=== PATIENT | male | born 2000 | race Caucasian/White ===

== ENCOUNTER 2019-10-28 03:56 | Observation (INO) ==
--- OUTSIDE RECORDS SUMMARY | 2019-10-28 03:59 | External Medical Summary | Continuity of Care Document ---
:2000 Author Name Millicent Kenny, Provider Address Unavailable Unavailable , Care Team Providers Name Role Phone Jean Carlos Kenny, Carlos Orantes Unavailable [email or web address], UNKNOWN Unavailable Unavailable Problems Active medical history not documented Allergies and Adverse Reactions Allergy history not documented Medications Medications not documented Procedures Procedures not documented Immunizations Immunizations not documented Plan of Treatment Planned Observations Planned Goals not documented Results No Known Results Results not documented
[2019-10-28] MEDS ORDERED: NALOXONE HCL 0.4 MG/1 ML VIAL/CARP ONE ×2 (04:02→04:04)
[2019-10-28 04:40] LABS: Alanine Aminotransferase 32 U/L (12-78); Albumin Level 3.7 gm/dl (3.4-5.0); Aspartate Aminotransferase 21 U/L (15-37); BUN Creatinine Ratio 14.8 (10-20); Blood Urea Nitrogen 20 mg/dl (7-18); Calcium 8.8 mg/dl (8.5-10.1); Carbon Dioxide 26 mmol/L (21-32); Chloride 109 mmol/L (98-107); Est GFR (African American) 84.8; Est GFR (Non-African American) 73.2; Glucose 82 mg/dl (70-99); Potassium 3.9 mmol/L (3.5-5.1); Sodium 140 mmol/L (136-145)
[2019-10-28 04:43] LABS: Albumin Globulin Ratio 1.1 (0.9-2); Alkaline Phosphatase 72 U/L (45-117); Bilirubin,Total 0.3 mg/dl (0.2-1); Globulin 3.5 gm/dl (2.5-4.0); Total Protein 7.2 gm/dl (6.4-8.2)
[2019-10-28 04:50] LABS: Amphetamines+Metham, Urine Neg (Neg); Barbiturates, Urine Neg (Neg); Benzodiazepine, Urine Pos (Neg); Cocaine, Urine Neg (Neg); MDMA (Ecstacy), Urine Neg (Neg); Methadone, Urine Neg (Neg); Opiate, Urine Neg (Neg); Phencyclidine, Urine Neg (Neg)
--- NOTE | 2019-10-28 05:44 | History & Physical Report ---
Date of Service October 28, 2019 Assessment & Plan (1) Unresponsive episode: Obs PCU Did not respond to Narcan neither on seen or in the ED I see that 2 years ago he was worked up for seizures due to syncope. EEG ordered Seizure precautions ordered. Neuro consult due this history. 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 I ordered CBC. LR at 150ml/hr. (3) Alcohol intoxication: ETOH level 164. History of Present Illness 19 y/o male was found unresponsive in bathroom by law enforcement. Reports that he had shallow breathing and was hypoxic in the 80's. Apparently he was able to be aroused and walked to stretcher, but then became unresponsive again and had pinpoint pupils. Narcan was given with no response. In the ED, the patient was given IV Narcan again with no response. The patient is currently sleeping with normal vital signs. POX 95% on RA. Nursing reported that he did awaken on his own briefly and said he did not know what had happened. Primary Care Provider: NO PCP Allergies Allergy/AdvReac Type Severity Reaction Status Date / Time No Known Allergies Allergy Unverified 11/29/18 04:57 Home Medications Home Medications Medication Instructions Recorded Confirmed Type No Known Home Medications 12/30/18 12/30/18 History Unobtainable 10/28/19 10/28/19 History Past Med/Surg History Medical History Seizure Family History Other No significant family history Social History Preferred Language: Vietnamese marital status: Single current occupational status: student Feels Safe at Home: Yes Smoking Status: Unknown if ever smoked Hx Substance Use: Yes substance use type: marijuana Review of Systems Review of Systems: Unobtainable due to reduced consciousness Physical Exam Physical Exam: General- adult male, sleeping does not awaken to loud verbal, Nurse reports that patient does awaken briefly, He is controlling his airway. Head- atraumatic Eyes- PERRL, EOMI, anicteric ENT- oropharynx clear Neck- supple, no JVD, no adenopathy, no thyromegaly. Lungs- CTA b/l, No R/R/W. Heart- regular rhythm; no murmur, no gallop, no rub appreciated Abdomen- normal bowel sounds, soft. Extremities- no pretibial edema, peripheral pulses intact Neuro- Sleeping, deferred at this time. Skin- warm & dry Results & Data Vital Signs (Past 12 Hours) Vital Signs Temp Pulse Resp BP Pulse Ox 10/28/19 05:00 68 17 98 10/28/19 04:55 77 20 114/66 10/28/19 04:54 103 H 19 96 10/28/19 04:45 100 10/28/19 04:41 91 H 99 10/28/19 04:40 85 133/76 97 10/28/19 04:38 110 H 96 10/28/19 04:20 80 17 100 10/28/19 04:10 67 100 10/28/19 04:05 67 100 10/28/19 03:56 36.6 C 67 17 123/73 98 Laboratory Results Laboratory Results Sodium 140 mmol/L (136-145) 10/28/19 04:11 Potassium 3.9 mmol/L (3.5-5.1) 10/28/19 04:11 Chloride 109 mmol/L (98-107) H 10/28/19 04:11 Carbon Dioxide 26 mmol/L (21-32) 10/28/19 04:11 Anion Gap 5.0 (3-11) 10/28/19 04:11 BUN 20 mg/dl (7-18) H 10/28/19 04:11 Creatinine 1.37 mg/dl (0.6-1.4) 10/28/19 04:11 Est Cr Clr Drug Dosing Not Reportable 10/28/19 04:11 Est GFR ( Amer) 84.8 10/28/19 04:11 Est GFR (Non-Af Amer) 73.2 10/28/19 04:11 BUN/Creatinine Ratio 14.8 (10-20) 10/28/19 04:11 Glucose 82 mg/dl (70-99) 10/28/19 04:11 Calcium 8.8 mg/dl (8.5-10.1) 10/28/19 04:11 Total Bilirubin 0.3 mg/dl (0.2-1) 10/28/19 04:11 AST 21 U/L (15-37) 10/28/19 04:11 ALT 32 U/L (12-78) 10/28/19 04:11 Alkaline Phosphatase 72 U/L (45-117) 10/28/19 04:11 Total Protein 7.2 gm/dl (6.4-8.2) 10/28/19 04:11 Albumin 3.7 gm/dl (3.4-5.0) 10/28/19 04:11 Globulin 3.5 gm/dl (2.5-4.0) 10/28/19 04:11 Albumin/Globulin Ratio 1.1 (0.9-2) 10/28/19 04:11 Urine Opiates Screen Neg (Neg) 10/28/19 04:17 Ur Methadone, Qual Neg (Neg) 10/28/19 04:17 Urine Barbiturates Neg (Neg) 10/28/19 04:17 Ur Phencyclidine (PCP) Neg (Neg) 10/28/19 04:17 U Amphetamin/Meth Scrn Neg (Neg) 10/28/19 04:17 MDMA (Ecstasy) Screen Neg (Neg) 10/28/19 04:17 U Benzodiazepines Scrn Pos (Neg) H 10/28/19 04:17 Ur Cocaine Metabolite Neg (Neg) 10/28/19 04:17 U Marijuana (THC) Screen Pos (Neg) H 10/28/19 04:17 Ethyl Alcohol mg/dL 164.0 mg/dl (0-3) H 10/28/19 04:11 Code Status & VTE Plan VTE Prophylaxis Plan VTE Prophylaxis will be ordered: Yes PG Care Time/CCT Total # of Minutes Spent Total Time Spent: 45 Total Time Spent with Patient: Total time spent is greater than 50% in coordination of care (as documented) at patient's floor/unit and/or counseling patient: (1) Altered mental status Altered mental status type: unspecified Qualified Code(s): R41.82 - Altered mental status, unspecified (2) Alcohol intoxication Complication of substance-induced condition: uncomplicated Qualified Code(s): F10.920 - Alcohol use, unspecified with intoxication, uncomplicated
[2019-10-28 05:46] LABS: Basophils # (auto) 0.01 K/uL (0-0.2); Basophils % (auto) 0.3 %; Eosinophils # (auto) 0.06 K/uL (0-0.5); Eosinophils % (auto) 1.6 %; Hematocrit (blood only) 39.6 % (42-52); Hemoglobin 13.5 g/dL (14.0-18.0); Lymphocytes # (auto) 1.37 K/uL (1.2-3.4); Lymphocytes % (auto) 35.8 %; Mean Corpuscular Hemoglobin 29.7 pg (25-34); Mean Corpuscular Hgb Conc 34.1 g/dL (32-36); Mean Corpuscular Volume 87.2 fL (80-100); Mean Platelet Volume 11.4 fL (7.4-10.4); Monocytes # (auto) 0.26 K/uL (0.11-0.59); Monocytes % (auto) 6.8 %; Neutrophils # (auto) 2.13 K/uL (1.4-6.5); Neutrophils % (auto) 55.5 %; Platelet Count 158 K/uL (130-400); RDW Coefficient of Variation 13.6 % (11.5-14.5); Red Blood Count 4.54 M/uL (4.7-6.1); White Blood Count 3.83 K/uL (4.8-10.8)
--- NOTE | 2019-10-28 05:47 | Emergency Department Note ---
Entered by Mason Gilman acting as a scribe for History of Present Illness General Chief complaint: Unresponsive Stated complaint: UNRESPONSIVE Time Seen by Provider: 10/28/19 04:09 Source: EMS Limitations: clinical acuity (unresponsiveness) History of Present Illness Onset (ago): day(s) (this morning) Location: head Pain Consistency: + constant Quality: + other (unresponsiveness) Associated symptoms: + other (Positive for pinpoint pupils, slow respirations, and a low oxygen saturation in the 80s.) Treatments prior to arrival: other (Narcan) The patient is a 19 year old male who presents to the emergency department with constant unresponsiveness beginning this morning. Per EMS, the patient was found unresponsive in the bathroom of Reginal[facility] Esquivel. He states that the patient was found with a little red bag containing some powder residue beneath him. He notes that the patient was initially able to walk with assistance, but he reports that the patient then went unresponsive. He states that the patients pupils were pinpoint and he notes that the patient had slow respirations at that time. He reports that the patient also had a low oxygen saturation in the 80s. He states that the patient received 2mg intranasal Narcan by EMS. HPI limited secondary to unresponsiveness. Home Medications Home Medications Medication Instructions Recorded Confirmed Type No Known Home Medications 12/30/18 12/30/18 History Unobtainable 10/28/19 10/28/19 History Allergies Allergy/AdvReac Type Severity Reaction Status Date / Time No Known Allergies Allergy Unverified 11/29/18 04:57 Past Med/Surg History Medical History Seizure Family History Other No significant family history Social History Preferred Language: Maltese marital status: Single current occupational status: student Feels Safe at Home: Yes Smoking Status: Unknown if ever smoked Hx Substance Use: Yes substance use type: marijuana Review of Systems ROS limited secondary to unresponsiveness. Physical Exam Vital Signs Vital Signs - 24 hr 10/28/19 03:56 10/28/19 04:05 10/28/19 04:10 Temperature 36.6 C Temperature Source Oral Pulse Rate 67 67 67 Pulse Rate from SpO2 Sensor 67 67 Respiratory Rate 17 Blood Pressure 123/73 Blood Pressure Mean 89 Pulse Oximetry 98 100 100 Oxygen Delivery Method Nasal Cannula Nasal Cannula Nasal Cannula Oxygen Flow Rate 5 5 5 Sepsis Recent Fever Within 48 Hours No Sepsis New/Unexplained Change in Mental Status No Sepsis Action Taken by Nursing No Action Required Oxygen Flow Rate - Titration Pulse Oximetry Post Tiitration 10/28/19 04:20 10/28/19 04:38 10/28/19 04:40 Temperature Temperature Source Pulse Rate 80 110 H 85 Pulse Rate from SpO2 Sensor 80 85 86 Respiratory Rate 17 Blood Pressure 133/76 Blood Pressure Mean 90 Pulse Oximetry 100 96 97 Oxygen Delivery Method Nasal Cannula Room Air Room Air Oxygen Flow Rate 5 Sepsis Recent Fever Within 48 Hours Sepsis New/Unexplained Change in Mental Status Sepsis Action Taken by Nursing Oxygen Flow Rate - Titration Pulse Oximetry Post Tiitration 10/28/19 04:41 10/28/19 04:45 10/28/19 04:54 Temperature Temperature Source Pulse Rate 91 H 103 H Pulse Rate from SpO2 Sensor 90 Respiratory Rate 19 Blood Pressure Blood Pressure Mean Pulse Oximetry 99 100 96 Oxygen Delivery Method Room Air Oxygen Flow Rate 5 Sepsis Recent Fever Within 48 Hours Sepsis New/Unexplained Change in Mental Status Sepsis Action Taken by Nursing Oxygen Flow Rate - Titration 0 Pulse Oximetry Post Tiitration 96 10/28/19 04:55 10/28/19 05:00 Temperature Temperature Source Pulse Rate 77 68 Pulse Rate from SpO2 Sensor Respiratory Rate 20 17 Blood Pressure 114/66 Blood Pressure Mean 87 Pulse Oximetry 98 Oxygen Delivery Method Room Air Oxygen Flow Rate Sepsis Recent Fever Within 48 Hours Sepsis New/Unexplained Change in Mental Status Sepsis Action Taken by Nursing Oxygen Flow Rate - Titration Pulse Oximetry Post Tiitration HEENT: Head - normocephalic and atraumatic. Pupils pinpoint. Extraocular eye muscles are intact, and sclera are anicteric. Nose - moist nasal mucosa without discharge. Mouth - moist buccal mucosa. Oropharynx is nonerythematous and there is no tonsillar exudate or edema noted. Neck: Supple; no cervical lymphadenopathy or nuchal rigidity appreciated Heart: Regular rate and rhythm. There is a normal S1 and S2 with no murmurs, clicks, or gallops appreciated. Lungs: Clear to auscultation bilaterally with no wheezes, rales, or rhonchi. Abdomen: Soft, completely nontender, nondistended, with good bowel sounds. There are no palpable pulsatile masses or hepatosplenomegaly. There is no guarding, rigidity, or rebound noted. Extremities: No evidence of cyanosis, clubbing, or edema. There are easily palpable peripheral pulses. Abrasions to right knee. Skin: warm and dry with good turgor and no rashes. Course Course 0358: The patient was evaluated in room B1. A complete history and physical exam was performed. Nursing notes and previous electronic medical records were reviewed. IV lock was established and labs were drawn as above. An order was placed for continuous cardiac monitoring. The patient was in a normal sinus rhythm at 72. He does have snoring respirations at times. 0404: Naloxone 2mg IV. The patient did not seem to arouse with this medication. 0442: I reevaluated the patient. He is awake and slowly answering questions. 0505: Nursing is putting seizure pads on the bed. The patient is sleeping. 0508: Upon reevaluation, the patient is stable. I discussed the findings and the treatment plan with the patient. He expresses agreement and understanding. I spoke with Dr. Siegel of the [facility] Hospitalist Service. He will be evaluated for further management. Consultations Consultation #1: I reviewed the patient's case with Dr. Siegel - Hospitalist, [facility]. He will evaluate the patient for further management. Time: 05:08 Administered Medications Discontinued Medications Naloxone HCl (Narcan) Confirm Administered Dose 1.2 mg .ROUTE .STK-MED ONE Stop: 10/28/19 04:03 Last Admin: 10/28/19 04:04 Dose: 0.4 mg Documented by: [id number] Naloxone HCl (Narcan) Confirm Administered Dose 1.6 mg .ROUTE .STK-MED ONE Stop: 10/28/19 04:05 Last Admin: 10/28/19 04:04 Dose: 1.6 mg Documented by: [id number] Medical Decision Making Differential Diagnosis Differential diagnoses include: alcohol overdose, drug intoxication, hypoglycemia, seizure, and closed head injury. Medical Records Attestation: I reviewed the patient's medical records. Home Medications Current Medication List: was personally reviewed by me Laboratory Data Attestation: I reviewed the patient's lab results. Result diagrams: 10/28/19 04:11 Lab Results 01/17/20 01/17/20 01/17/20 Range/Units 04:11 04:11 04:17 Sodium 140 (136-145) mmol/L Potassium 3.9 (3.5-5.1) mmol/L Chloride 109 H (98-107) mmol/L Carbon Dioxide 26 (21-32) mmol/L Anion Gap 5.0 (3-11) BUN 20 H (7-18) mg/dl Creatinine 1.37 (0.6-1.4) mg/dl Est Cr Clr Drug Dosing Not Reportable Est GFR ( Amer) 84.8 Est GFR (Non-Af Amer) 73.2 BUN/Creatinine Ratio 14.8 (10-20) Glucose 82 (70-99) mg/dl Calcium 8.8 (8.5-10.1) mg/dl Total Bilirubin 0.3 (0.2-1) mg/dl AST 21 (15-37) U/L ALT 32 (12-78) U/L Alkaline Phosphatase 72 (45-117) U/L Total Protein 7.2 (6.4-8.2) gm/dl Albumin 3.7 (3.4-5.0) gm/dl Globulin 3.5 (2.5-4.0) gm/dl Albumin/Globulin Ratio 1.1 (0.9-2) Urine Opiates Screen Neg (Neg) Ur Methadone, Qual Neg (Neg) Urine Barbiturates Neg (Neg) Ur Phencyclidine (PCP) Neg (Neg) U Amphetamin/Meth Scrn Neg (Neg) MDMA (Ecstasy) Screen Neg (Neg) U Benzodiazepines Scrn Pos H (Neg) Ur Cocaine Metabolite Neg (Neg) U Marijuana (THC) Screen Pos H (Neg) Ethyl Alcohol mg/dL 164.0 H (0-3) mg/dl Imaging Data Radiologist's Impression: Radiology results as stated below per my review and the radiologist's interpretation: CT HEAD: No acute intracranial hemorrhage, extra-axial fluid collection, edema, mass effect, or acute cortical infarct. No fracture. The paranasal sinuses and mastoid air cells are clear. Radiologist: Beau Cabrales MD. ECG Data Attestation: I personally reviewed and interpreted this ECG as follows: Indication: + altered mental status (unresponsiveness) Rate (beats per minute): 67 Rhythm: + normal sinus ECG ST segments: no ST depression and no ST elevation ECG Findings: no PACs and no PVCs Blood Pressure Blood Pressure Findings: Normal blood pressure Blood Pressure Disposition: did not require urgent referral MDM Narrative The patient is a 19 year old male who presents to the emergency department with constant unresponsiveness beginning this morning. The patient smells of alcohol upon presentation. He did have pinpoint pupils that were nonreactive and did not change with administration of IV Narcan. The patient remained on supplemental oxygen. Alcohol level was 160. Urine tox s creen was positive for benzodiazepine and marijuana. In reviewing the patient's medical records, it seems that he has been seen in this emergency department on 2 previous occasions for seizure-like activity. In reviewing those notes, it seems that he has had a neurological work-up including EEG which was negative. The patient did wake up here in the emergency department appeared to be postictal. I am concerned that the patient did suffer a seizure and is also intoxicated with alcohol. I discussed the case with the [facility] Hospitalist and they will evaluate for further management. Impression & Plan Altered mental status, Alcohol intoxication Discharge Plan Visit Data Chief Complaint: Unresponsive Stated Complaint: UNRESPONSIVE ED Provider: Marleny Montaño Discharge Problem: Altered mental status, Alcohol intoxication Patient Disposition: Being Evaluated by Hospitalist Forms Stand Alone Forms: My [facility] Prescriptions Prescriptions: No Action No Known Home Medications RF: 0 Unobtainable RF: 0 Referrals Referrals: PCP,NO [Primary Care Provider] - Discharge Problem: Altered mental status Qualifiers: Altered mental status type: unspecified Qualified Code(s): R41.82 - Altered mental status, unspecified Alcohol intoxication Qualifiers: Complication of substance-induced condition: uncomplicated Qualified Code(s): F10.920 - Alcohol use, unspecified with intoxication, uncomplicated The scribe's documentation has been prepared under my direction and personally reviewed by me in its entirety. I confirm that the note above accurately reflects all work, treatment, procedures, and medical decision making performed by me.
[2019-10-28] MEDS ORDERED: LACTATED RINGER'S 1,000 ML IV SCH (06:00)
[2019-10-28] MEDS ORDERED: ACETAMINOPHEN 325 MG TAB PO PRN (06:05)
[2019-10-28] MEDS ORDERED: ONDANSETRON INJ 2 MG/ML 2 ML VIAL IV PRN (06:05)
--- NOTE | 2019-10-28 07:24 | CT Scan Report ---
CT SCAN OF THE BRAIN WITHOUT IV CONTRAST CLINICAL HISTORY: Unresponsive. COMPARISON STUDY: MRI of the brain dated 07/26/2018. TECHNIQUE: Unenhanced axial CT scan of the brain is performed from the vertex to the skull base. A d ose lowering technique was utilized adhering to the principles of ALARA. CT DOSE: 614.27 mGy.cm FINDINGS: Brain parenchyma: The brain parenchyma is normal in appearance. There is no hemorrhage, mass effect, or evidence of acute territorial ischemia by CT criteria. Faria-white matter differentiation is preser miguel angel. No extra-axial fluid collection is seen. Ventricles, sulci, cisterns: Normal in configuration. Intracranial vasculature: The visualized intracranial vasculature at the skull base is normal in appe arance. Calvarium: Unremarkable. Sinuses and mastoids: The visualized paranasal sinuses are clear. The mastoid air cells are well pneu matized. Orbits: The bony orbits are grossly intact. IMPRESSION: No acute intracranial abnormality. ACT 112: Negative or not required by law. Electronically signed by: Chico Moreno M.D. 10/28/2019 7:22 AM
--- NOTE | 2019-10-28 11:49 | Electrocardiogram Report ---
Test Reason : Blood Pressure : / mmHG Vent. Rate : 067 BPM Atrial Rate : 067 BPM P-R Int : 192 ms QRS Dur : 108 ms QT Int : 408 ms P-R-T Axes : 056 063 050 degrees QTc Int : 431 ms Normal sinus rhythm Incomplete right bundle branch block Diffuse Minor ST elevation, most consistent with repolarization variant Abnormal ECG When compared with ECG of 30-DEC-2018 20:19, Minor ST elevation more apparent (likely rate related phenomenon) HR has decreased BY 46 BPM Confirmed by Arash Marrufo ([id number]) on 10/28/2019 11:49:21 AM Referred By: REFERRED SELF Confirmed By:Arash Marrufo
--- NOTE | 2019-10-28 12:18 | Electrocardiogram Report ---
Test Reason : Blood Pressure : / mmHG Vent. Rate : 082 BPM Atrial Rate : 082 BPM P-R Int : 156 ms QRS Dur : 096 ms QT Int : 378 ms P-R-T Axes : 056 035 016 degrees QTc Int : 441 ms Normal sinus rhythm Normal ECG When compared with ECG of 28-OCT-2019 04:02, Diffuse Minor ST elevation no longer present Confirmed by Arash Marrufo ([id number]) on 10/28/2019 12:18:17 PM Referred By: REFERRED SELF Confirmed By:Arash Marrufo
--- NOTE | 2019-10-28 13:56 | Electroencephalogram ---
EEG Procedure Note Date of Service October 28, 2019 Start / End Times Start Time: 704 End Time: 734 Referring Physician Gabino Siegel History Probable ethanol overdose with other substances, unresponsive state, history of syn Home Medication List Home Medications Medication Instructions Recorded Confirmed Type No Known Home Medications 12/30/18 12/30/18 History Unobtainable 10/28/19 10/28/19 History Inpatient Medication List Lactated Ringer's (Lr) 1,000 mls @ 150 mls/hr IV .[id number] [facility] Stop: 11/27/19 05:59 Last Admin: 10/28/19 06:06 Dose: 150 mls/hr Documented by: [id number] Discontinued Medications Naloxone HCl (Narcan) Confirm Administered Dose 1.2 mg .ROUTE .[employer] ONE Stop: 10/28/19 04:03 Last Admin: 10/28/19 04:04 Dose: 0.4 mg Documented by: [id number] Naloxone HCl (Narcan) Confirm Administered Dose 1.6 mg .ROUTE .STK-[employer] ONE Stop: 10/28/19 04:05 Last Admin: 10/28/19 04:04 Dose: 1.6 mg Documented by: [id number] Description This is a 21 electrode EEG with a single channel dedicated to limited EKG. The electrodes were placed in accordance with the International 10-20 system. This EEG was done as a bedside recording in the intensive care unit. Simultaneous video analysis was performed unfortunately the actual image was not downloaded with sufficient pulmonary to be viewed. Photic stimulation was performed Drowsiness and light sleep were not clearly recorded Under the conditions there is evidence for normal-appearing background alpha rhythm of about 9 to 10 Hz of maximal frequency of 30 V maximal amplitude. This is maximum posterior head regions bilaterally symmetrical. Polymorphic relatively low amplitude frequency theta activity seen over the central regions in a symmetrical fashion. Beta activity seen bifrontally At no time during the waking tracing is there evidence for potentially epileptogenic activity. Photic stimulation provokes a moderate driving response without a photoparoxysmal Tracing is hampered by periodic muscle movement artifact but otherwise is relatively free of significant impediments to interpretation Interpretation This is a normal EEG during wakefulness without evidence for a focal generalized encephalopathy without evidence for potentially epileptogenic patterns Clinical Correlation Mat This EEG is normal during wakefulness without a focal or generalized encephalopathy and without evidence for potentially epileptogenic patterns. Normal EEG unfortunately does not exclude the diagnosis of seizure disorder Reza Saleh MD
--- NOTE | 2019-10-28 14:49 | Discharge Summary ---
Date of Service October 28, 2019 Admission HPI Per Admitting Provider 19 y/o male was found unresponsive in bathroom by law enforcement. Reports that he had shallow breathing and was hypoxic in the 80's. Apparently he was able to be aroused and walked to stretcher, but then became unresponsive again and had pinpoint pupils. Narcan was given with no response. In the ED, the patient was given IV Narcan again with no response. The patient is currently sleeping with normal vital signs. POX 95% on RA. Nursing reported that he did awaken on his own briefly and said he did not know what had happened. Primary Care Provider: NO PCP Admission Exam (Per Admitting) Constitutional General- adult male, sleeping does not awaken to loud verbal, Nurse reports that patient does awaken briefly, He is controlling his airway. Head- atraumatic Eyes- PERRL, EOMI, anicteric ENT- oropharynx clear Neck- supple, no JVD, no adenopathy, no thyromegaly. Lungs- CTA b/l, No R/R/W. Heart- regular rhythm; no murmur, no gallop, no rub appreciated Abdomen- normal bowel sounds, soft. Extremities- no pretibial edema, peripheral pulses intact Neuro- Sleeping, deferred at this time. Skin- warm & dry Discharge Data Consultations [place] [phone] CT Scan Report Patient: BRIANA ESPAÑAAdmit Date: 10/28/19 MR#: [id number]: [address] Acct ID:[id number]: Date: 2000[facility] Zip: [place] [address] Age: 19Location: 1E Sex: M Room/Bed: [facility] Att Phy: Gabino Siegel, DODiagnosis: UNRESPONSIVE EPISODE, ALTERED MENTAL STATUS Nini Phy: PCP,NOService Date: 10/28/19 Fam Phy:Interpreting Phy: Chico Moreno MD Admit Phy: Gabino Siegel, DO Ordering Phy: Marleny Montaño D.O. cc: ~ CT SCAN OF THE BRAIN WITHOUT IV CONTRAST CLINICAL HISTORY: Unresponsive. COMPARISON STUDY: MRI of the brain dated 07/26/2018. TECHNIQUE: Unenhanced axial CT scan of the brain is performed from the vertex to the skull base. A dose lowering technique was utilized adhering to the principles of ALARA. CT DOSE: 614.27 mGy.cm FINDINGS: Brain parenchyma: The brain parenchyma is normal in appearance. There is no hemorrhage, mass effect, or evidence of acute territorial ischemia by CT criteria. Faria-white matter differentiation is preserved. No extra-axial fluid collection is seen. Ventricles, sulci, cisterns: Normal in configuration. Intracranial vasculature: The visualized intracranial vasculature at the skull base is normal in appearance. Calvarium: Unremarkable. Sinuses and mastoids: The visualized paranasal sinuses are clear. The mastoid air cells are well pneumatized. Orbits: The bony orbits are grossly intact. IMPRESSION: No acute intracranial abnormality. ACT 112: Negative or not required by law. Electronically signed by: Chico Moreno M.D. 10/28/2019 7:22 AM Dictated: 10/28/19 0700 10/28/19 05:11 ED Decision to Admit Stat 10/28/19 13:57 Consult [employer] [place] [address] Electroencephalogram Signed Patient: BRIANA ESPAÑAAdmit Date: 10/28/19 MR#: [id number] Phy: Debbie Tanner MD Acct ID:[id number] Phy: PCP,NO Date: 2000Fa Phy: Age: 19Location: 1E Sex: M Room/Bed: [facility] cc: ~ *NOTICE TO RECEIVING DEMOCRAT/AGENCY This information is strictly Confidential and protected under [place] law. [place] law prohibits you from making any further disclosure of this information unless further disclosure is expressly permitted by the written consent of the person to whom it pertains or is authorized by law. A general authorization for the release of medical or other information is not sufficient for this purpose. Hospital accepts no responsibility if the information is made available to any other person, INCLUDING THE PATIENT. EEG Procedure Note Date of Service October 28, 2019 Start / End Times Start Time: 704 End Time: 734 Referring Physician Gabino Siegel History Probable ethanol overdose with other substances, unresponsive state, history of syn Home Medication List Home Medications Medication Instructions Recorded Confirmed Type No Known Home Medications 12/30/18 12/30/18 History Unobtainable 10/28/19 10/28/19 History Inpatient Medication List Lactated Ringer's (Lr) 1,000 mls @ 150 mls/hr IV .Q6H40M [facility]OL[facility]O Stop: 11/27/19 05:59 Last Admin: 10/28/19 06:06 Dose: 150 mls/hr Documented by: [id number] Discontinued Medications Naloxone HCl (Narcan) Confirm Administered Dose 1.2 mg .ROUTE .STK-MED ONE Stop: 10/28/19 04:03 Last Admin: 10/28/19 04:04 Dose: 0.4 mg Documented by: [id number] Naloxone HCl (Narcan) Confirm Administered Dose 1.6 mg .ROUTE .STK-MED ONE Stop: 10/28/19 04:05 Last Admin: 10/28/19 04:04 Dose: 1.6 mg Documented by: [id number] Description This is a 21 electrode EEG with a single channel dedicated to limited EKG. The e lectrodes were placed in accordance with the International 10-20 system. This EEG was done as a bedside recording in the intensive care unit. Simultaneous video analysis was performed unfortunately the actual image was not downloaded with sufficient pulmonary to be viewed. Photic stimulation was performed Drowsiness and light sleep were not clearly recorded Under the conditions there is evidence for normal-appearing background alpha rhythm of about 9 to 10 Hz of maximal frequency of 30 V maximal amplitude. This is maximum posterior head regions bilaterally symmetrical. Polymorphic relatively low amplitude frequency theta activity seen over the central regions in a symmetrical fashion. Beta activity seen bifrontally At no time during the waking tracing is there evidence for potentially epileptogenic activity. Photic stimulation provokes a moderate driving response without a photoparoxysmal Tracing is hampered by periodic muscle movement artifact but otherwise is relatively free of significant impediments to interpretation Interpretation This is a normal EEG during wakefulness without evidence for a focal generalized encephalopathy without evidence for potentially epileptogenic patterns Clinical Correlation Mat This EEG is normal during wakefulness without a focal or generalized encephalopathy and without evidence for potentially epileptogenic patterns. Normal EEG unfortunately does not exclude the diagnosis of seizure disorder Reza Saleh MD Signed By:<Electronically signed by Reza Saleh MD>10/28/19 7761 Created: 10/28/19 1348 Hospital Course (1) Altered mental status: 19 yo male presents to ED after being found unresponsive by law enforcement Alcohol intoxication - Etoh level of 164 and urine positive for benzo's and marijuana - Received Narcan in the ED and transferred to the ICU. Improved throughout the morning. - Case discussed with neurology considering the patient PMH of seizure-like episodes. Previous EEG were negative. - Obtained EEG in the morning (see results above). Normal per neuro read. - Patient will need follow up with [facility] - Discussed alcohol cessation and alcohol counseling with the patient (2) Alcohol intoxication: (3) Unresponsive episode:
--- NOTE | 2019-10-28 14:51 | Discharge Summary ---
Date of Service October 28, 2019 Admission HPI Per Admitting Provider 19 y/o male was found unresponsive in bathroom by law enforcement. Reports that he had shallow breathing and was hypoxic in the 80's. Apparently he was able to be aroused and walked to stretcher, but then became unresponsive again and had pinpoint pupils. Narcan was given with no response. In the ED, the patient was given IV Narcan again with no response. The patient is currently sleeping with normal vital signs. POX 95% on RA. Nursing reported that he did awaken on his own briefly and said he did not know what had happened. Primary Care Provider: NO PCP Admission Exam Per Admitting Provider Constitutional General- adult male, sleeping does not awaken to loud verbal, Nurse reports that patient does awaken briefly, He is controlling his airway. Head- atraumatic Eyes- PERRL, EOMI, anicteric ENT- oropharynx clear Neck- supple, no JVD, no adenopathy, no thyromegaly. Lungs- CTA b/l, No R/R/W. Heart- regular rhythm; no murmur, no gallop, no rub appreciated Abdomen- normal bowel sounds, soft. Extremities- no pretibial edema, peripheral pulses intact Neuro- Sleeping, deferred at this time. Skin- warm & dry Principal Diagnosis ETOH intoxication Discharge Exam Constitutional WD/WN, vitals as above Eyes PERRL, conjunctivae normal, anicteric sclerae ENMT external ear and nose normal, oropharynx normal Neck trachea midline, no thyromegaly Respiratory normal respiratory effort, lungs clear to auscultation Cardiovascular RRR, no murmur, no edema Gastrointestinal (Abdomen) normal bowel sounds, soft, nontender, no hepatosplenomegaly Musculoskeletal no cyanosis or clubbing, extremities motor strength 5/5 Skin no rashes, warm and dry Neurologic PERRL, EOMI, accommodation nl, no face palsy, no dysarthria Psychiatric A+Ox3, euthymic affect Discharge Data Allergies Allergy/AdvReac Type Severity Reaction Status Date / Time No Known Allergies Allergy Unverified 11/29/18 04:57 Consultations 10/28/19 05:11 ED Decision to Admit Stat 10/28/19 13:57 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 [place] Att Phy: Gabino Siegel, DODiagnosis: UNRESPONSIVE EPISODE, ALTERED MENTAL STATUS Nini Phy: PCP,NOService Date: 10/28/19 Fam Phy:Interpreting Phy: Chico Moreno MD Admit Phy: Gabino Siegel, DO Ordering Phy: Marleny Montaño D.O. cc: ~ CT SCAN OF THE BRAIN WITHOUT IV CONTRAST CLINICAL HISTORY: Unresponsive. COMPARISON STUDY: MRI of the brain dated 07/26/2018. TECHNIQUE: Unenhanced axial CT scan of the brain is performed from the vertex to the skull base. A dose lowering technique was utilized adhering to the principles of ALARA. CT DOSE: 614.27 mGy.cm FINDINGS: Brain parenchyma: The brain parenchyma is normal in appearance. There is no hemorrhage, mass effect, or evidence of acute territorial ischemia by CT criteria. Faria-white matter differentiation is preserved. No extra-axial fluid collection is seen. Ventricles, sulci, cisterns: Normal in configuration. Intracranial vasculature: The visualized intracranial vasculature at the skull base is normal in appearance. Calvarium: Unremarkable. Sinuses and mastoids: The visualized paranasal sinuses are clear. The mastoid air cells are well pneumatized. Orbits: The bony orbits are grossly intact. IMPRESSION: No acute intracranial abnormality. ACT 112: Negative or not required by law. Electronically signed by: Chico Moreno M.D. 10/28/2019 7:22 AM Dictated: 10/28/19 0700 10/28/19 05:11 ED Decision to Admit Stat 10/28/19 13:57 Consult [employer] [place] [address] Electroencephalogram Signed Patient: BRIANA ESPAÑAAdmit Date: 10/28/19 MR#: [id number] Phy: Debbie Tanner MD Acct ID:[id number] Phy: DAVID,NO Date: 2000Fam Phy: Age: 19Location: 1E Sex: M Room/Bed: [facility] [place] cc: ~ *NOTICE TO RECEIVING CONSTITUTION PARTY/AGENCY This information is strictly Confidential and protected under [place] law. [place] law prohibits you from making any further disclosure of this information unless further disclosure is expressly permitted by the written consent of the person to whom it pertains or is authorized by law. A general authorization for the release of medical or other information is not sufficient for this purpose. Hospital accepts no responsibility if the information is made available to any other person, INCLUDING THE PATIENT. EEG Procedure Note Date of Service October 28, 2019 Start / End Times Start Time: 704 End Time: 734 Referring Physician Gabino Siegel History Probable ethanol overdose with other substances, unresponsive state, history of syn Home Medication List Home Medications Medication Instructions Recorded Confirmed Type No Known Home Medications 12/30/18 12/30/18 History Unobtainable 10/28/19 10/28/19 History Inpatient Medication List Lactated Ringer's (Lr) 1,000 mls @ 150 mls/hr IV .Q6H40M [facility] Stop: 11/27/19 05:59 Last Admin: 10/28/19 06:06 Dose: 150 mls/hr Documented by: [id number] Discontinued Medications Naloxone HCl (Narcan) Confirm Administered Dose 1.2 mg .ROUTE .STK-MED ONE Stop: 10/28/19 04:03 Last Admin: 10/28/19 04:04 Dose: 0.4 mg Documented by: [id number] Naloxone HCl (Narcan) Confirm Administered Dose 1.6 mg .ROUTE .STK-MED ONE Stop: 10/28/19 04:05 Last Admin: 10/28/19 04:04 Dose: 1.6 mg Documented by: [id number] Description This is a 21 electrode EEG with a single channel dedicated to limited EKG. The electrodes were placed in accordance with the International 10-20 system. This EEG was done as a bedside recording in the intensive care unit. Simultaneous video analysis was performed unfortunately the actual image was not downloaded with sufficient pulmonary to be viewed. Photic stimulation was performed Drowsiness and light sleep were not clearly recorded Under the conditions there is evidence for normal-appearing background alpha rhythm of about 9 to 10 Hz of maximal frequency of 30 V maximal amplitude. This is maximum posterior head regions bilaterally symmetrical. Polymorphic relatively low amplitude frequency theta activity seen over the central regions in a symmetrical fashion. Beta activity seen bifrontally At no time during the waking tracing is there evidence for potentially epileptogenic activity. Photic stimulation provokes a moderate driving response without a photoparoxysmal Tracing is hampered by periodic muscle movement artifact but otherwise is relatively free of significant impediments to interpretation Interpretation This is a normal EEG during wakefulness without evidence for a focal generalized encephalopathy without evidence for potentially epileptogenic patterns Clinical Correlation Mat This EEG is normal during wakefulness without a focal or generalized encephalopathy and without evidence for potentially epileptogenic patterns. Normal EEG unfortunately does not exclude the diagnosis of seizure disorder Reza Saleh MD Hospital Course (1) Altered mental status: 19 yo male presents to ED after being found unresponsive by law enforcement Unresponsiveness due to Alcohol intoxication and benzo use - Etoh level of 164 and urine positive for benzo's and marijuana - Received Narcan in the ED and transferred to the ICU. Improved throughout the morning. - Previous EEG were negative. - Obtained EEG in the morning (see results above). Normal per neuro read. - Case discussed with neurology considering the patient PMH of seizure-like episodes. - Patient will need follow up with [facility] - Discussed alcohol cessation and alcohol counseling with the patient (2) Alcohol intoxication: (3) Unresponsive episode: Total Time Total Time Spent Total Time Spent (In Minutes): greater than 30 Total Time Includes: Examination of the Patient, Discharge Planning, Medication Reconciliation and Communication With Other Providers Discharge Plan Discharge Items Patient Disposition: Home - Self-Care Reason For Visit: UNRESPONSIVE EPISODE, ALTERED MENTAL STATUS Discharge Diagnosis: Alcohol intoxication Condition on Discharge: Good Activity: Resume your previous activity Non-emergency contact: Primary Care Provider and Neurologist Call non-emergency contact if: you have any medication questions Follow-up/Referrals: Elizabeth Dunne MD [Primary Care Provider] - 11/02/19 10:00 am (Please, follow up at [facility] with Dr. Elizabeth Dunne on ThursdayNovember 02 at 10:00 am. If you need to change this appointment, call the office at [phone].) Reza Saleh MD [Physician] - (Please, follow up at [facility] Office with Dr. Saleh. *A nurse from this office will contact you with the appointment details. If you have any questions, call the office at [phone].) Diet: Regular Addtl Attending Provider Instructions: Your EEG, which looks for seizures, came back normal. We were concerned about seizures considering your past medical history of seizure like activity and because of unresponsiveness on arrival to the hospital. This is all likely secondary to alcohol intoxication. We recommend that you see a alcohol counselor regarding safe drinking and or alcohol cessation. In addition, we are setting you up with an appointment with Neurology. Pending Studies at Discharge: No Stand-Alone Forms: My [facility], Work/School Release (Inpt), Smoking Cessation Medications and DC Order Prescriptions: No Action No Known Home Medications RF: 0 Unobtainable RF: 0 Discharge Orders: Discharge Order (Routine); Ordered 10/28/19 Ordered By: Kaden Fuentes Admission Data Admit Date/Time: 10/28/19 05:21 Attending Provider: Debbie Tanner Admit Provider: Gabino Siegel Primary Care Provider: Elizabeth Dunne Other Providers: Gabino Siegel Other Interventions: Discharge Summary Assessment (RN) Last Done: 10/28/19 14:27 DC Date/Time DO NOT enter until pt leaves facility: 10/28/19 15:06 Supervising Physician Co-Signing Physician Notes Resident Physician Supervision Note: I independently interviewed and examined the patient and verified the brady history and physical, reviewed labs and image studies, discussed the case with the resident Dr. Fuentes and agree with the findings and care plan. Resident Activity Tracking Resident Involvement: Resident Care Provided Care Provided: Adult Hospital Medicine
[2019-10-31 02:04] LABS: 7-Aminoclonaz, Confirm NEGATIVE ng/mL (<25); Hydro-Alp Ur, GC/MS NEGATIVE ng/mL (<25); Hydroxyethylflurazepam, Conf NEGATIVE ng/mL (<50); Hydroxytriazolam NEGATIVE ng/mL (<50); Lorazepam, Ur GC/MS NEGATIVE ng/mL (<50); Marijuana Quant, GCMS Urine 25 ng/mL (<5); Nordiazepam, Confirm NEGATIVE ng/mL (<50); Oxazepam Ur, GC/MS NEGATIVE ng/mL (<50); Temazepam, Confirm NEGATIVE ng/mL (<50)
== END 2019-10-28 15:06 | disposition home or self-care (01) ==
LOC: 1E 03:56 → ED 03:56 → SUATTDRO 05:21 → 1E 05:43